=== PATIENT | male | born 1950 | race Hispanic/Latino ===

== ENCOUNTER 2024-06-21 06:43 | Emergency (ER) | payer OTHER ==
[~2024-06-21] VITALS: Ht 172.7 cm; Wt 86.2 kg
[2024-06-21 06:56] VITALS: TEMP 98
[2024-06-21] MEDS: SODIUM CHLORIDE 0.9% 1000ML 1,000 ML IV STA (08:42)
[2024-06-21 09:02] LABS: BASOPHILS % 0.6 % (0.0-1.0); EOSINOPHILS # (AUTO) 0.1 (0.0-0.4); EOSINOPHILS % 2.5 % (0.0-6.0); HEMATOCRIT 41.7 % (38.2-49.6); HEMOGLOBIN 14.6 g/dL (14.0-18.0); LYMPHOCYTES # (AUTO) 0.7 (1.0-3.2); LYMPHOCYTES % 18.9 % (18.0-39.1); MEAN CORPUSCULAR HEMOGLOBIN 32.1 pg (28-32); MEAN CORPUSCULAR VOLUME 91.6 fL (81-99); MONOCYTES # (AUTO) 0.4 (0.2-0.8); MONOCYTES % 11.5 % (4.4-11.3); NEUTROPHILS # (AUTO) 2.4 (2.1-6.9); NEUTROPHILS % 66.5 % (38.7-80.0); PLATELET COUNT 173 x10e3/uL (140-360); RED BLOOD COUNT 4.55 x10e6/uL (4.3-5.7); RED CELL DISTRIBUTION WIDTH 12.5 % (11.7-14.4); WHITE BLOOD COUNT 3.55 x10e3/uL (4.8-10.8)
[2024-06-21 09:27] LABS: ANION GAP 13.2 mmol/L (8-16); BLOOD UREA NITROGEN 11 mg/dL (7-26); CARBON DIOXIDE 24 mmol/L (22-29); CHLORIDE 102 mmol/L (98-107); CREATININE, SERUM 0.86 mg/dL (0.72-1.25); POTASSIUM 4.2 mmol/L (3.5-5.1); SODIUM 135 mmol/L (136-145)
[2024-06-21 09:28] LABS: ALANINE AMINOTRANSFERASE 26 IU/L (0-55); ALBUMIN/GLOBULIN RATIO 1.1 (0.8-2.0); ALKALINE PHOSPHATASE 74 IU/L (40-150); BILIRUBIN,TOTAL 1.1 mg/dL (0.2-1.2); BUN/CREATININE RATIO 13 (6-25); CALCIUM 9.6 mg/dL (8.4-10.2); CREATINE KINASE 134 IU/L (30-200); EST GLOMERULAR FILTRATION RATE 91 ML/MIN (>=60); GLUCOSE 127 mg/dL (74-118); TOTAL PROTEIN 7.7 g/dL (6.5-8.1)
[2024-06-21] MEDS ORDERED: KETOROLAC TROMETHAMINE 30 MG/ML VIAL IV STA (09:31)
[2024-06-21 09:34] LABS: TROPONIN I < 0.001 ng/mL (0-0.300)
[2024-06-21 09:43] VITALS: PULSE 54; RESP 16; O2SAT 100
[2024-06-21] MEDS ORDERED: AZITHROMYCIN250 MG PO (09:51)
[2024-06-21] MEDS ORDERED: PREDNISONE20 MG PO (09:51)
[2024-06-21] MEDS ORDERED: HYDROCODON-ACE1 EA11 PO (09:53)
[2024-06-21] MEDS: KETOROLAC TROMETHAMINE 30 MG/ML VIAL IV STA (09:58)
== END 2024-06-21 10:15 | disposition home or self-care (01) ==
LOC: ER 07:49
DX: R07.89 Other chest pain (principal); R42 Dizziness and giddiness; W18.2XXA Fall in (into) shower or empty bathtub, initial encounter; Y93.E1 Activity, personal bathing and showering; Y92.89 Other specified places as the place of occurrence of the external cause; R03.0 Elevated blood-pressure reading, without diagnosis of hypertension; R00.1 Bradycardia, unspecified; I10 Essential (primary) hypertension; E78.5 Hyperlipidemia, unspecified; K76.0 Fatty (change of) liver, not elsewhere classified; K21.9 Gastro-esophageal reflux disease without esophagitis; R94.31 Abnormal electrocardiogram [ECG] [EKG]; Z95.5 Presence of coronary angioplasty implant and graft
CPT/HCPCS: 36415; 70450; 71250; 74176; 80053; 82550; 83690; 83880; 84484; 85025; 93005; 99283; J1885; J7030